=== PATIENT | male | born 1975 | race Caucasian/White ===

== ENCOUNTER 2024-06-29 01:58 | Emergency (ER) | payer BC, SELFPAY ==
--- NOTE | ~2024-06-29 | CT_ITS ---
Non-contrast Head CT History: Headache Technique: Axial non-contrast imaging of the brain was performed. Dose reduction technique was used on this scan by utilizing automated exposure control and iterative reconstruction technique. The dose -length product (DLP) was 756.67 mGy-cm. Findings: There is no evidence of intracranial hemorrhage, mass lesion, or acute infarct. Brain par enchyma appears normal. The ventricles and subarachnoid spaces are normal in size. The calvarium ap pears normal. The visualized paranasal sinuses and mastoid air cells are clear. Impression: No significant abnormality seen. Reviewed, dictated and finalized at location . TER Impression: No significant abnormality seen.
[2024-06-29 02:02] VITALS: BP 189/108; PULSE 76; RESP 22; TEMP 36.3; O2SAT 100
--- NOTE | 2024-06-29 02:50 | ED_ITS ---
HPI - General Adult General Chief complaint: Headache Stated complaint: headache and HTN Time Seen by Provider: 06/29/24 02:16 History of Present Illness HPI narrative: Patient is a 49-year-old male who presents to the emergency department this morning and complaining of a severe sudden-onset headache that woke him up around 1:00 a.m. this morning. Patient's was present at bedside with him informed me that the patient has been struggling to maintain his blood pressure for the past few months. Patient is on 2 different blood pressure medications and his primary care physician told him to double up on his medication which he has done a few weeks ago and it has not been controlling his blood pressure. states that his blood pressure has been sitting around 180-200 systolic for the past 3 months. Patient's primary care physician did prescribe him another blood pressure medication, however, patient states that due to insurance issues they have not failed this new medication yet. Patient denies any history of migraines and was present at bedside states that he has been having headaches associated with his elevated blood pressures but this 1 is the worst. Patient denies any focal weakness, numbness and tingling. Denies any vision changes. Related Data Allergies Allergy/AdvReac Type Severity Reaction Status Date / Time No Known Allergies Allergy Mild Verified 06/29/24 02:05 Review of Systems Review of Systems: All systems are reviewed and are negative unless stated otherwise in the HPI. [facility] Past Medical History Medical History (Updated 06/29/24 @ 04:47 by Chele Agee MD) Broken radius (~06/2006) Broken fibula (03/1993) High blood pressure Hemorrhoids Heart disease Chicken pox Family History Family History Father Hypertension Cerebrovascular accident Rheumatoid arthritis Diabetes mellitus Depression Mother Hypertension Irritable bowel syndrome (IBS) Depression Sibling No problems noted. Social History Social History Smoking status: Never smoker Alcohol intake: never Exam Narrative: General: Alert, awake, afebrile, in no acute distress. HEENT: PERRL, no rhinorrhea, no post nasal drip, oropharynx clear, photophobia. Neck: Trachea midline, no JVD, no lymphadenopathy. Cardiovascular: Regular rate and rhythm, no murmurs, rubs or gallops, no peripheral edema. Respiratory: Clear to auscultation bilaterally, no tachypnea, no wheezing, no rhonchi, no rubs, no respiratory distress. Abdomen: Soft, nontender, nondistended, no rebound, no guarding, no peritoneal signs. Musculoskeletal: No joint swelling or deformity, normal muscle tone. Skin: No rashes or petechia, no signs of infection. Psychiatric: Alert and oriented, normal behavior and judgment for situation. Neurological: Alert and oriented to person, place, and time. Follows all commands. 5/5 motor strength in the bilateral upper and lower extremity, sensation intact and equal in the bilateral upper and lower extremity, cranial nerves 2-12 grossly intact, speech is clear and fluent. Course Vital Signs Vital signs: Vital Signs Temperature 97.3 F L 06/29/24 02:02 Pulse Rate 76 06/29/24 02:02 Respiratory Rate 22 H 06/29/24 02:02 Blood Pressure 189/108 H 06/29/24 02:02 Pulse Oximetry 100 06/29/24 02:02 Oxygen Delivery Room Air 06/29/24 02:02 Temperature 97.3 F L 06/29/24 02:02 Pulse Rate 66 06/29/24 03:07 Respiratory Rate 16 06/29/24 03:07 Blood Pressure 165/94 H 06/29/24 03:07 Pulse Oximetry 95 06/29/24 03:07 Oxygen Delivery Room Air 06/29/24 02:02 Medical Decision Making MDM Narrative Medical decision making narrative: The patient was evaluated by myself in the emergency department. History is obtained from patient who is an independent historian and physical exam was performed. External medical records were reviewed at this time. IV was established and pertinent tests were ordered. Patient was administered 25 mg of IV Benadryl and 10 mg of IV Reglan for headache at this time. Patient states that he took 1 g of Tylenol prior to arrival. Viral swabs were obtained at this time and noted to be negative for C OVID/RSV/influenza. Imaging studies obtained included CT brain without IV contrast which was independently interpreted by me revealing no acute process, which is pending final radiology interpretation. On repeat assessment the patient, he is resting comfortably asleep. Repeat blood pressure noted to be 158/70 mmHg. At this time patient was administered 50 mg of IV Toradol. Patient states that he feels well enough to go home and is requesting discharge. Differential diagnosis considerations include subarachnoid hemorrhage, hypertensive emergency versus hypertensive urgency. Comorbidities impacting this visit include history of hypertension. I have evaluated and discussed social determinants of health with the patient that could potentially impact subsequent diagnosis and treatment plans. On repeat assessment of the patient, reevaluation revealed that the patient is doing well and is in no acute distress. Patient symptoms have improved since he arrived to our emergency department. Repeat vital signs were all reviewed and noted to be stable. Differential diagnosis and treatment plan were discussed with the patient at bedside. Patient agrees with discussion and after shared medical decision making agrees with discharge. All questions were answered to the patient's satisfaction. Patient will follow up with his PCP in 2 days. Patient was provided with strict return precautions and instructed to return to the emergency department if any new or worsening symptoms develop. The patient was discharged in stable condition. Vital Signs Vital Signs: Vital Signs Temperature 97.3 F L 06/29/24 02:02 Pulse Rate 76 06/29/24 02:02 Respiratory Rate 22 H 06/29/24 02:02 Blood Pressure 189/108 H 06/29/24 02:02 Pulse Oximetry 100 06/29/24 02:02 Oxygen Delivery Room Air 06/29/24 02:02 Temperature 97.3 F L 06/29/24 02:02 Pulse Rate 66 06/29/24 03:07 Respiratory Rate 16 06/29/24 03:07 Blood Pressure 165/94 H 06/29/24 03:07 Pulse Oximetry 95 06/29/24 03:07 Oxygen Delivery Room Air 06/29/24 02:02 Lab Data Labs: Lab Results 06/29/24 Range/Units 02:54 Influenza A (RT-PCR) Negative (Negative) Influenza B (RT-PCR) Negative (Negative) RSV (RT-PCR) Negative (Negative) SARS-CoV-2 RNA (RT-PCR) Negative (Negative) Discharge Plan Discharge Clinical Impression: Cephalalgia HTN (hypertension) Qualifiers: Hypertension type: essential hypertension Qualified Code(s): I10 - Essential (primary) hypertension Patient Disposition: Home, Self-Care Condition: Improved Instructions: Antibiotic Form, Acute Headache (DC), Hypertension (ED) Additional Instructions: Please follow-up with your family doctor within the next 2 days. I do recommend starting the new hypertension medication that your primary care physician prescribed you as soon as possible as maintaining of blood pressure in the 180- 200 systolic is dangerous and may result in serious life-threatening conditions such as stroke. Return to the emergency department if any new or worsening symptoms develop. Patient Language: Bengali Prescriptions: No Action simvastatin 10 mg tablet See Rx Instructions .ROUTE .COMPLEX Qty: 90 3RF Dose Instruction: TAKE 1 TABLET DAILY Rx Instructions: TAKE 1 TABLET DAILY amlodipine 10 mg tablet 10 mg PO DAILY Qty: 30 0RF Follow-up/Referrals: Claudia,Kirill Gonzalez MD [Primary Care Provider] - 2 Days Time of Disposition: 04:47
[2024-06-29] MEDS: METOCLOPRAMIDE HCL INJ 10 MG/2 ML VIAL IV PUSH (03:02)
[2024-06-29] MEDS: diphenhydrAMINE HCl INJ 50 MG/ML VIAL 25 MG IV PUSH (03:02)
[2024-06-29 03:07] VITALS: BP 165/94; PULSE 66; RESP 16; O2SAT 95
[2024-06-29 03:34] LABS: Influenza A QL RT-PCR Negative (Negative); Influenza B QL RT-PCR Negative (Negative); RSV RNA, RT-PCR Negative (Negative); SARS-CoV-2 RNA PCR Negative (Negative)
[2024-06-29] MEDS: KETOROLAC 15 MG/ML VIAL (*BKC) IV PUSH (04:43)
[2024-06-29 05:10] VITALS: BP 162/88; PULSE 63; RESP 13; O2SAT 99
--- OUTSIDE RECORDS SUMMARY | 2024-07-01 15:18 | XMS_ITS | Clinical Summary ---
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 Name Role Phone Kirill Taylor MD Primary Care Provider [phone] Allergies No known active allergies Medications aspirin 81 mg enteric coated tablet Take 1 tablet (81 mg total) by mouth daily 06/18/19 24 Active testosterone cypionate (DEPO-TESTOTER ONE) 100 mg/mL injection INJECT 1 ML (100 MG TOTAL) INTO THE MUSCLE INSTRUCTED EVERY 14 (FOURTEEN) DAYS 10 mL 1 03/24/20 24 Active rosuvastatin (CRESTOR) 10 mg tablet Take 1 tablet (10 mg total) by mouth daily 90 tablet 04/12/20 24 Active amlodipine-olm esartan (JOY) 10-40 mg per tablet Take 1 tablet by mouth daily 30 tablet 2 06/29/19 25 Active cloNIDine (CATAPRES) 0.1 mg tablet 1 q 12 BP greater than 180 prn 60 tablet 1 06/29/19 25 Active tirzepatide (MOUNJARO) 2.5 mg/0.5 mL pen injector Inject 0.5 mL (2.5 mg total) under the skin every 7 days 2 mL 2 05/22/20 23 025 Discontinued(Th erapy completed) amLODIPine-radha azepriL (LOTREL 5-10) 5-10 mg per capsule TAKE 1 CAPSULE BY MOUTH DAILY 90 capsule 03/15/20 24 025 Discontinued amLODIPine-radha azepriL (LOTREL 5-10) 5-10 mg per capsule TAKE 1 CAPSULE BY MOUTH EVERY DAY 90 capsule 06/10/19 25 025 Discontinued(Th erapy completed) azilsartan med-chlorthali done 40-12.5 mg tablet 1 daily 30 tablet 5 06/17/19 25 025 Discontinued(Re order) azilsartan med-chlorthali done 40-12.5 mg tablet 1 daily 90 tablet 1 06/23/19 25 025 Discontinued(Re order) azilsartan med-chlorthali done 40-12.5 mg tablet 1 daily 90 tablet 1 06/25/19 25 025 Discontinued(Re order) azilsartan med-chlorthali done 40-12.5 mg tablet 1 daily 90 tablet 1 06/28/19 25 025 Discontinued(Al ternate therapy) Active Problems Problem Noted Date Diagnosed Date Encounter for screening for malignant neoplasm o f colon 06/26/2023 Morbid (severe) obesity due to excess calories 1 07/23/2022 LIA (obstructive sleep apnea) 06/18/2022 Annual physical exam 05/16/2022 Hypertension 10/14/2012 Assessment & Plan (05/20/2018 4:13 PM TRANSITION LEAD): Blood pressure is under good control. Continue meds and work on lifestyle. Had previously elevated creatinine. Will check labs today. Follow-up 1 year. Encounters Date Type Department Care Team Description 06/29/2024 3:00 PM TRANSITION LEAD Office Visit [facility] Family Medicine at [address] [place] [phone] Kirill Taylor MD Essential hypertension (Primary Dx) 06/22/2024 Telephone [facility] at [address] [place] [phone] Kirill Taylor MD Medication Request 06/17/2024 11:15 AM TRANSITION LEAD Office Visit [facility] Medicine at [address] [address] Kirill Taylor MD Annual physical exam (Primary Dx); Hypogonadism in male; Mixed hyperlipidemia 06/12/2024 12:05 PM TRANSITION LEAD Lab [facility] [address] [place] [address] Annual physical exam; Hypogonadism in male; Prostate cancer screening; Mixed hyperlipidemia 04/26/2024 Telephone [facility] Family Medicine at [place] [address] [facility] [address] [place] [address] Kirill Taylor MD Additional Services Or Orders 03/31/2024 8:30 AM CDT Lab [facility] Outpatient Lab at [address] [address] Hypertension (Primary Dx) 03/31/2024 8:25 AM CDT - 03/31/2024 11:59 PM CDT Hospital Encounter [address] [address] Hypogonadism in male Discharge Disposition: Discharge to home or self care from Last 3 Months Immunizations Name Administration Dates Next Due Influenza, Quadrivalent, Spl it, Preservative Free, Intramuscular 05/22/2023 Influenza, Unspecified 06/17/2024(Deferr ed: Patient decision),03/22/2021,03/09/2020 Surgical History Surgery Date Site/Laterality Comments ANKLE FRACTURE SURGERY Right Medical History Medical History Date Comments Sleep apnea Motion sickness Hypertension Hyperlipidemia Family History Medical History Relation Name Comments Hypertension Father Family history of hypertension - (Added by TW Conv) Rheum arthritis Father Family histo ry of rheumatoid arthritis - (Added by TW Conv) Stroke Father Family history of stroke - (Added by TW Conv) Hypertension Mother Family history of hypertension - (Added by TW Conv) Relation Name Status Comments Father Mother Social History Tobacco Use Types Packs/Day Years Used Date Smoking Tobacco: Never Smokeless Tobacco: Never Tobacco Cessation:Counseling Given: Not Answered AUDIT-C Answer Date Recorded Q1: How often do you have a drink containing alc ohol? Monthly or less 06/17/2024 Q2: How many drinks containi ng alcohol do you have on a typical day when you are drinking? 1 or 2 06/17/2024 Q3: How often do you have si x or more drinks on one occasion? Less than monthly 06/17/2024 PHQ-2 Answer Date Recorded PHQ-2 Total Score (If total score is 3 or more points, staff should administer the PHQ-9) 0 06/17/2024 Personal Safety Answer Date Recorded Have you ever been in or are you currently in a harmful physical or emotional relationship or is someone making you feel afraid or unsafe? Denies 07/21/2023 Sex and Gender Information Value Date Recorded Sex Assigned at Not on file Legal Sex Male 7:40 AM TRANSITION LEAD Gender Identity Not on file Sexual Orientation Not on file Obstetrics History Last Filed Vital Signs Vital Sign Reading Time Taken Comments Blood Pressure 198/100 06/29/2024 2:59 PM TRANSITION LEAD Pulse 90 06/29/2024 2:59 PM TRANSITION LEAD Temperature 36.9 ??C (98.5 ??F) 06/29/2024 2:59 PM CS T Respiratory Rate 16 06/17/2024 11:5 9 AM TRANSITION LEAD Oxygen Saturation 97% 06/29/2024 2:59 PM TRANSITION LEAD Inhaled Oxygen Concentration - - Weight 121.2 kg (267 lb 3.2 oz) 06/29/2024 2:59 PM TRANSITION LEAD Height 180.3 cm (5' 11 ) 06/29/2024 2:59 PM TRANSITION LEAD Body Mass Index 37.27 06/29/2024 2:59 PM TRANSITION LEAD Plan of Treatment Health Maintenance Due Date Last Done Comments Hepatitis C Screening 1975 DTaP/Tdap/Td Vaccine (1 - Tdap) 02/09/1984 Hepatitis B Screening 1991 Zoster Vaccine (1 of 2) 2023 Covid-19 Vaccine ( - season) 2024 08/18/2020, 07/21/2020 Regular Well Visit/Exam 18-64 05/22/2024 05/22/2023, 05/16/2022, 04/18/2021 Influenza Vaccine (#1) 2024 , 03/22/2021, 03/09/2020 Postponed from 2024 (Patient declined, but will receive in the future) Depression Screening 06/17/2025 06/17/2024, 06/17/2024, 05/22/2023, Additional history exists Prostate Cancer Screening-PSA 06/12/2026 06/12/2024, 01/01/2023, 05/22/2022 Colon Cancer Screening-Colonoscopy 07/21/2033 07/21/2023 Pneumococcal vaccine <65 Aged Out No longer eligible based on patient's age to complete this topic Procedures Procedure Name Priority Date/Time Associated Diagnosis Comments EGFR Routine 06/12/2024 12:47 PM TRANSITION LEAD Annual physical exam DIFFERENTIAL AUTO Routine 06/12/2024 12: 47 PM TRANSITION LEAD Annual physical exam CBC WITH AUTO DIFFERENTIAL Routine 06/12/2024 12:47 PM TRANSITION LEAD Annual physical exam COMPREHENSIVE METABOLIC PANEL Routine 06/12/2024 12:47 PM TRANSITION LEAD Annual physical exam LIPID PANEL Routine 06/12/2024 12:47 PM TRANSITION LEAD Annual physical exam Mixed hyperlipidemia PSA SCREEN Routine 06/12/2024 12:47 PM TRANSITION LEAD Annual physical exam Prostate cancer screening TOTAL TESTOSTERONE Routine 06/12/2024 12 :47 PM TRANSITION LEAD Hypogonadism in male HEMOGLOBIN A1C Routine 06/12/2024 12:47 PM TRANSITION LEAD Annual physical exam TOTAL TESTOSTERONE Routine 03/31/2024 8: 25 AM CDT Hypogonadism in male COLONOSCOPY 07/21/2023 1:06 PM TRANSITION LEAD from Last 3 Months or Most Recently Relevant to Health Maintenance Results * eGFR (06/12/2024 12:47 PM TRANSITION LEAD) eGFR 73 >=60 mL/min/1. 73 m2 Comment: Interpretive Data Reference Interval Normal ?>/= 90 mL/min/1.73m2 Mildly decreased* ? 60 - 89 mL/min/1.73m2 Mildly to moderately decreased ?45 - 59 mL/min/1.73m2 Moderately to severely decreased ??30 - 44 mL/min/1.73m2 Severely decreased ?15 - 29 mL/min/1.73m2 Kidney Failure ?< 15 ??mL/min/1.73m2 *Relative to young adult level Estimated glomerular filtration rate is determined by the 2020 CKD-EPI equation recommended by the National Kidney Foundation (A Unifying Approach to GFR Estimation: Recommendations of the NKF-ASK Task Force on Reassessing the Inclusion of Race in Diagnosing Kidney Disease, JASN 2020). The CKD-EPI equation should not be used for patients with unstable renal function and has not been validated in children and those over 70. Current interpretive data was last reviewed 2021. Testing performed by: [address] [address] Blood 06/12/2024 12:4 7 PM TRANSITION LEAD 06/12/2024 12:54 PM TRANSITION LEAD us Kirill Taylor MD LAB BLOOD ORDERABLES Final Re sult [facility] [address] [facility] [place] [address] * (ABNORMAL) Differential, auto (06/12/2024 12:47 PM TRANSITION LEAD) Neutrophil abs 7.4(H) 1.5 - 6.5 K/cumm Comment:Testing performed by : [address] [address] Imm gran abs 0.1 0.0 - 0.1 K/cumm [facility] Comment:Testing performed by : [address] [address] Lymphocyte abs 1.8 0.8 - 3.3 K/cumm [facility] Comment:Testing performed by : [address] [address] Monocyte abs 0.9(H) 0.2 - 0.8 K/cumm [facility] Comment:Testing performed by : [address] [address] Eosinophil abs 0.1 0.0 - 0.5 K/cumm [facility] Comment:Testing performed by : [address] [address] Basophil abs 0.1 0.0 - 0.1 K/cumm [facility] Comment:Testing performed by : [address] [address] Neutrophil pct 71.0 % [facility] Comment: Interpretive Data Percent cell count reference ranges are not reported, since discordance with absolute values may lead to misinterpretation of CBC data. Current Interpretive Data was last revised on 2017. Testing performed by: [address] [address] Imm gran pct 1.2 % [facility] Comment: Interpretive Data Percent cell count reference ranges are not reported, since discordance with absolute values may lead to misinterpretation of CBC data. Current Interpretive Data was last revised on 2017. Testing performed by: [address] [address] Lymphocyte pct 17.2 % [facility] Comment: Interpretive Data Percent cell count reference ranges are not reported, since discordance with absolute values may lead to misinterpretation of CBC data. Current Interpretive Data was last revised on 2017. Testing performed by: [address] [address] Monocyte pct 9.0 % [facility] Comment: Interpretive Data Percent cell count reference ranges are not reported, since discordance with absolute values may lead to misinterpretation of CBC data. Current Interpretive Data was last revised on 2017. Testing performed by: [address] [address] Eosinophil pct 1.1 % [facility] Comment: Interpretive Data Percent cell count reference ranges are not reported, since discordance with absolute values may lead to misinterpretation of CBC data. Current Interpretive Data was last revised on 2017. Testing performed by: [address] [address] Basophil pct 0.5 % [facility] Comment: Interpretive Data Percent cell count reference ranges are not reported, since discordance with absolute values may lead to misinterpretation of CBC data. Current Interpretive Data was last revised on 2017. Testing performed by: [facility], [address] [place] [address]., [address] Blood 06/12/2024 12:4 7 PM TRANSITION LEAD 06/12/2024 12:53 PM TRANSITION LEAD us Kirill Taylor MD LAB BLOOD ORDERABLES Final Re sult [facility] [address] [facility] [place] [address] * PSA screen (06/12/2024 12:47 PM TRANSITION LEAD) PSA-Total 2.88 <=3.90 ng/mL Comment: Interpretive Data ?AGE ? SEX ?REFERENCE INTERVAL 0 minutes-150 years ?Female ?None 0 minutes-49 years ? Male ?None ? 50-59 years ? Male ?0-3.90 ? 60-69 years ? Male ?0-5.40 ? 70-79 years ? Male ?0-6.20 ? 80-150 years ?Male ?0-6.20 The EQUIP Advantage PSA Total assay procedure was used. Results from different manufacturers or methods may not be comparable. Serial testing should be performed using the same method. Current interpretive data last revised 21. Testing performed by: [facility], [address] [place] [address]., [address] Blood 06/12/2024 12:4 7 PM TRANSITION LEAD 06/12/2024 12:54 PM TRANSITION LEAD us Kirill Taylor MD LAB BLOOD ORDERABLES Final Re sult [facility] [address] [facility] [place] [address] * (ABNORMAL) CBC with auto differential (06/12/2024 12:47 PM TRANSITION LEAD) WBC 10.4(H) 3.8 - 9.9 K/cumm Comment:Testing performed by : [address] [address] Hgb 17.0 13.0 - 17.5 g/dL [facility] Comment:Testing performed by : [address] [address] Hct 50.0 38.9 - 50.3 % [facility] Comment:Testing performed by : [address] [address] Plt 227 150 - 400 K/cumm [facility] Comment:Testing performed by : [address] [address] MPV 11.2 9.1 - 12.3 fL [facility] Comment:Testing performed by : [address] [address] RBC 5.65 4.30 - 5.80 M/cumm [facility] Comment:Testing performed by : [address] [address] MCV 88.5 81.3 - 96.4 fL [facility] Comment:Testing performed by : [address] [address] MCH 30.1 27.1 - 33.3 pg [facility] Comment:Testing performed by : [address] [address] MCHC 34.0 32.3 - 35.7 g/dL [facility] Comment:Testing performed by : [address] [address] RDW CV 13.8 11.1 - 14.9 % [facility] Comment:Testing performed by : [address] [address] RDW SD 44.0 35.7 - 48.1 fL [facility] Comment:Testing performed by : [address] [address] NRBC abs 0.00 0.00 - 0.01 K/cumm [facility] Comment:Testing performed by : [address] [address] Blood 06/12/2024 12:4 7 PM TRANSITION LEAD 06/12/2024 12:53 PM TRANSITION LEAD Kirill Taylor MD LAB BLOOD ORDERABLES Final Re sult Performing Organization Address [facility] de Phone Number [address] [address] * (ABNORMAL) Total testosterone (06/12/2024 12:47 PM TRANSITION LEAD) Testosterone 836.00(H) 193.00 - 740.00 ng/dL Blood 06/12/2024 12:4 7 PM TRANSITION LEAD 06/12/2024 2:51 PM TRANSITION LEAD Kirill Taylor MD LAB BLOOD ORDERABLES Final Re sult Performing Organization Address [facility] de Phone Number [address] [address] * Hemoglobin A1c (06/12/2024 12:47 PM TRANSITION LEAD) Hgb A1C 5.4 4.0 - 5.6 % Comment:Testing performed by : [address] [address] Estimated Average Glucose 108 mg/dL [facility] Comment: The ADA recommends reporting an estimated Average Glucose (eAG) with all Hemoglobin A1c results using the equation derived from a study of 507 normal and diabetic adults. ??Minority populations were underrepresented and children were not included. ?? (Diabetes Care 31:1688-0037, 2008). ??The eAG is not equivalent to a fasting glucose. Testing performed by: [address] [address] Blood 06/12/2024 12:4 7 PM TRANSITION LEAD 06/12/2024 12:53 PM TRANSITION LEAD us Kirill Taylor MD LAB BLOOD ORDERABLES Final Re sult [facility] [address] [facility] Department [place] [address] * (ABNORMAL) Lipid panel (06/12/2024 12:47 PM TRANSITION LEAD) Cholesterol 164 30 - 199 mg/dL Comment: Interpretive Data Ages < or = 19 years ??Acceptable: ? <170 mg/dL ??Borderline high: ??170-199 mg/dL ??High: ? >or= 200 mg/dL Ages > or = 20 years ??Desirable: ?<200 mg/dL ??Borderline high: ??200-239 mg/dL ??High: ? >or= 240 mg/dL Literature References: 1. Expert Panel on Integrated Guidelines for Cardiovascular Health and Risk Reduction in Children and Adolescents. Pediatrics 2011;128:S213 2. NCEP Expert Panel. Circulation 2004;110:227 Current Interpretive Data was last revised on 2018. Testing performed by: [facility], [address] [place] [address]., [address] Triglycerides 134 <=149 mg/dL [facility] Comment: Interpretive Data Ages < or = 9 years ??Acceptable: ? <75 mg/dL ??Borderline high: ??75-99 mg/dL ??High: ? >or= 100 mg/dL Ages 10 to 20 years ??Acceptable: ? <90 mg/dL ??Borderline high: ??90-129 mg/dL ??High: ? >or= 130 mg/dL Ages > or = 20 years ??Desirable: ?<150 mg/dL ??Borderline high: ??150-199 mg/dL ??High: ? 200-499 mg/dL ?Very high: ?? >or= 499 mg/dL Literature References: 1. Expert Panel on Integrated Guidelines for Cardiovascular Health and Risk Reduction in Children and Adolescents. Pediatrics 2011;128:S213 2. NCEP Expert Panel. Circulation 2004;110:227 Current Interpretive Data was last revised on 2018. Testing performed by: [address] [address] HDL 36(L) >=40 mg/dL [facility] Comment: Interpretive Data Ages < or = 19 years ??Acceptable: ? >45 mg/dL ??Borderline low: ?? 40-45 mg/dL ??Low: ? <40 mg/dL Ages > or = 20 years ??Desirable: ?>or= 60 mg/dL ??Low: ? <40 mg/dL Literature References: 1. Expert Panel on Integrated Guidelines for Cardiovascular Health and Risk Reduction in Children and Adolescents. Pediatrics 2011;128:S213 2. NCEP Expert Panel. Circulation 2004;110:227 Current Interpretive Data was last revised on 2018. Testing performed by: [address] [address] LDL, calculated 104 <=129 mg/dL [facility] Comment: Interpretive Data Ages < or = 19 years ??Acceptable: ? <110 mg/dL ??Borderline high: ??110-129 mg/dL ??High: ?>or= 130 mg/dL Ages > or = 20 years ??Optimal: ? <100 mg/dL ??Near optimal: ?100-129 mg/dL ??Borderline high: ?? 130-159 mg/dL ??High: ?>160 mg/dL Calculated using the Martell LDL-C estimating equation. This equation was implemented on 2024. Prior to this date LDL-C was estimated using the Friedewald equation. Literature References: 1. Expert Panel on Integrated Guidelines for Cardiovascular Health and Risk Reduction in Children and Adolescents. Pediatrics 2011;128:S213 2. NCEP Expert Panel. Circulation 2004;110:227 3. Jasbir M et al. PAMLEA Cardiol. 2020 October 07;5(5):540-548. doi: 10.1001/jamacardio.2020.0013 Current Interpretive Data was last revised on 2024. Testing performed by: [address] [address] Non-HDL Cholesterol 128 mg/dL [facility] Comment: Interpretive Data Ages < or = 19 years ??Acceptable: ?<120 mg/dL ??Borderline high: ??120-144 mg/dL ??High: ?>145 mg/dL Ages > or = 20 years ??When triglycerides are >200 mg/dL, Non-HDL cholesterol is a secondary target of ? therapy with treatment goals that are 30 mg/dL greater than the LDL cholesterol target. ? Literature References: 1. Expert Panel on Integrated Guidelines for Cardiovascular Health and Risk Reduction in Children and Adolescents. Pediatrics 2011;128:S213 2. NCEP Expert Panel. Circulation 2004;110:227 Current Interpretive Data was last revised on 2018. Testing performed by: [address] [address] Chol/HDL ratio 5 [facility] Comment:Testing performed by : [address] [address] Blood 06/12/2024 12:4 7 PM TRANSITION LEAD 06/12/2024 12:54 PM TRANSITION LEAD us Kirill Taylor MD LAB BLOOD ORDERABLES Final Re sult [facility] [address] [facility] [place] [address] * Comprehensive metabolic panel (06/12/2024 12:47 PM TRANSITION LEAD) Sodium 142 135 - 145 mmol/L Comment:Testing performed by : [address] [address] Potassium, pl 4.5 3.3 - 4.9 mmol/L [facility] Comment:Testing performed by : [address] [address] Chloride 107 97 - 110 mmol/L [facility] Comment:Testing performed by : [address], [place]., [address] CO2 23 22 - 32 mmol/L [facility] Comment:Testing performed by : [address] [address] Anion gap 12 2 - 15 mmol/L [facility] Comment:Testing performed by : [address] [address] BUN 21 6 - 25 mg/dL [facility] Comment:Testing performed by : [address], [place]., [address] Creatinine 1.20 0.80 - 1.30 mg/dL [facility] Comment:Testing performed by : [address] [address] Glucose 82 70 - 199 mg/dL [facility] Comment: Interpretive Data Fasting glucose >/= 126 mg/dl is diagnostic for diabetes. ?? Fasting is defined as no caloric intake for at least 8 hours. Fasting glucose between 100 mg/dl to 125 mg/dl is diagnostic of prediabetes. In a patient with classic symptoms of hyperglycemia or hyperglycemic crisis, a random glucose >/= 200 mg/dl is diagnostic for diabetes. In the absence of unequivocal hyperglycemia, results should be confirmed by repeat testing. The classification and Diagnosis of Diabetes Diabetes Care 202; 46: S19-S40. Current interpretive data was last revised 2022. Testing performed by: [address] [address] Calcium 9.4 8.5 - 10.3 mg/dL [facility] Comment:Testing performed by : [address] [address] Bilirubin, total 0.7 0.1 - 1.2 mg/dL [facility] Comment:Testing performed by : [address] [address] Protein, pl 7.3 6.5 - 8.5 g/dL [facility] Comment:Testing performed by : [address] [address] Albumin 4.6 3.5 - 5.0 g/dL [facility] Comment:Testing performed by : [address] [address] Alk phos 51 40 - 130 Units/L [facility] Comment:Testing performed by : [address] [address] ALT 38 7 - 55 Units/L [facility] Comment:Testing performed by : [address] [address] AST 31 10 - 50 Units/L [facility] Comment:Testing performed by : [address], [address] Blood 06/12/2024 12:4 7 PM TRANSITION LEAD 06/12/2024 12:54 PM TRANSITION LEAD us Kirill Taylor MD LAB BLOOD ORDERABLES Final Re sult [facility] [address] [facility] [place] [address] * (ABNORMAL) Total testosterone (03/31/2024 8:25 AM CDT) Testosterone 1,249(H) 193 - 740 ng/dL Blood 03/31/2024 8:25 AM CDT 03/31/2024 6:04 PM CDT Kirill Taylor MD LAB BLOOD ORDERABLES Final Re sult [facility] [address] Department [place] [address] * COLONOSCOPY (07/21/2023 1:06 PM TRANSITION LEAD) Anatomical Region Laterality Modality Other Narrative Procedure Note Juaquin Wren MD - 07/21/2023 1:06 PM CST [facility] Patient Name: Vijaya Boyd Procedure Date: 07/21/2023 1:06 PM Date of : 1975 Admit Type: Outpatient Age: 48 Gender: Male Note Status: Finalized Attending MD: Juaquin Wren M.D. Procedure Date: 07/21/2023 Procedure: Colonoscopy Indications: Colon cancer screening in patient at increasedrisk: Family history of colorectal cancer in multiple 2nd degree relatives Providers: Juaquin Wren M.D., Foster Li CRNA (Anesthesia Staff), Brigitte Mclean RN, Christine, Cafeteria Table Attendant Referring MD: Kirill Taylor M.D. Medicines: Monitored Anesthesia Care Complications: No immediate complications. Estimated Blood Loss: Estimated blood loss: none. Procedure: Pre-Anesthesia Assessment: - Airway Examination: normal oropharyngeal airwayand neck mobility. - Respiratory Examination: clear to auscultation. - ASA Grade Assessment: II - A patient with mild systemic disease. - After reviewing the risks and benefits, thepatient was deemed in satisfactory condition to undergo the procedure. - The risks and benefits of the procedure and the sedation options and risks were discussed with the patient. All questions were answered and informed consent was obtained. After I obtained informed consent, the scope was passed under direct vision. Throughout theprocedure, the patient's blood pressure, pulse, and oxygen saturations were monitored continuously. The scopewas passed under direct vision. The Colonoscope was introduced through the anus and advanced to the the cecum, identified by the appendiceal orifice, ileocecal valve and palpation. The colonoscopy was performed with ease. The patient tolerated the procedure well. The quality of the bowelpreparation was good. The quality of the bowel preparation was evaluated using the BBPS ([place] Bowel Preparation Scale) with scores of: Right Colon = 2 (minoramount of residual staining, small fragments of stooland/or opaque liquid, but mucosa seen well), TransverseColon = 2 (minor amount of residual staining, small fragments of stool and/or opaque liquid, but mucosa seen well) and Left Colon = 2 (minor amount of residual staining, small fragments of stool and/or opaque liquid, but mucosa seen well). The totalBBPS score equals 6. The quality of the bowelpreparation was good. The bowel preparation used was Clenpiqvia split dose instruction. Bowel prep was administered using a split dose. Findings: The perianal and digital rectal examinations were normal. Multiple medium-mouthed diverticula were found in the sigmoidcolon. An 8 mm polyp was found in the sigmoid colon. The polyp was sessile.The polyp was removed with a cold snare. Resection and retrieval were complete. Estimated blood loss: none. A 5 mm polyp was found in the sigmoid colon. The polyp was sessile.The polyp was removed with a cold biopsy forceps. Resection and retrieval were complete. Estimated blood loss: none. The retroflexed view of the distal rectum and anal verge was normaland showed no anal or rectal abnormalities. A 13 mm polyp was found in the hepatic flexure. The polyp was multi-lobulated. Preparations were made for mucosal resection.Thermal marking with the tip of a snare was done to denilson the borders of the lesion. Demarcation of the lesion was performed to clearly identify boundaries of the lesion. Everlift was injected to raise the lesion. Snare mucosal resection was performed. Resection and retrieval were complete. Impression: - Diverticulosis in the sigmoid colon. - One 13 mm polyp in the ascending colon, removedwith mucosal resection. Resected and retrieved. - One 8 mm polyp in the sigmoid colon, removed witha cold snare. Resected and retrieved. - One 5 mm polyp in the sigmoid colon, removed witha cold biopsy forceps. Resected and retrieved. - The distal rectum and anal verge are normal on retroflexion view. - Mucosal resection was performed. Resection and retrieval were complete. Recommendation: - Discharge patient to home (ambulatory). - Await pathology results. - Repeat colonoscopy in 3 years for surveillance. - No ibuprofen, naproxen, or other non-steroidal anti-inflammatory drugs for 2 weeks after polyp removal. Procedure Code(s): --- Professional --- 49587, Colonoscopy, flexible; with endoscopicmucosal resection 57487, 59, Colonoscopy, flexible; with removal of tumor(s), polyp(s), or other lesion(s) by snare technique 00396, 59, Colonoscopy, flexible; with biopsy,single or multiple Diagnosis Code(s): --- Professional --- Z80.0, Family history of malignant neoplasm of digestive organs D12.2, Benign neoplasm of ascending colon D12.5, Benign neoplasm of sigmoid colon K57.30, Diverticulosis of large intestine without perforation or abscess without bleeding CPT copyright 2020 [employer]. All rights reserved. The codes documented in this report are preliminary and upon program analyst reviewmay be revised to meet current compliance requirements. Electronically signed by Juaquin Wren MD Juaquin Wren M.D. 07/21/2023 1:35:57 PM Number of Addenda: 0 Note Initiated On: 07/21/2023 1:06 PM Juaquin Wren MD ENDOSCOPY PROCEDURES Final Resul t from Last 3 Months or Most Recently Relevant to Health Maintenance Insurance [facility] ACCESS CHOICE txtr ACCESS CHOICE [employer] ACCESS CHOICE Care Teams Stock Cutter Relationship Specialty Start Date End Date Kirill Taylor MD PCP - General Family Medicine 04/18/21
--- OUTSIDE RECORDS SUMMARY | 2024-07-01 15:18 | XMS_ITS | Clinical Summary ---
Author Organization [facility] Address [address] [place] [address]. 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 Gender Identity Not on file Sexual Orientation Not on file Plan of Treatment Health Maintenance Due Date Last Done Comments Colorectal Cancer Screening Colonoscopy (10 Years) 1973 Annual Physical 02/09/1976 Hepatitis C 1991 DTaP, Tdap and Td Vaccines ( 1 - Tdap) 02/09/1992 Hepatitis B Vaccines (1 of 3 - 19+ 3-dose series) 02/09/1992 Zoster Vaccines (1 of 2) 2023 COVID-19 Vaccine (1 - 2023-2 5 season) 2024 Influenza Adult (#1) 2024 03/22/2021, 03/09/2020 Meningococcal Vaccine Aged Out No albaro gerald eligible based on patient's age to complete this topic Pneumococcal Vaccine: Pediatrics (0 to 5 Years) and At-Risk Patients (6 to 64 Years) Aged Out No longer eligible b ased on patient's age to complete this topic RSV Immunizations Under 20 Months Aged Out No longer eligible b ased on patient's age to complete this topic Insurance [facility] Care Teams Remote Control Mirror Installer Relationship Specialty Start Date End Date Kirill Taylor MD PCP - General FAMILY PRACTICE 04/23/21
--- OUTSIDE RECORDS SUMMARY | 2024-07-01 15:18 | XMS_ITS | Referral Summary ---
Author Organization [facility] Address [facility] [place] [address] Care Team Providers Care Respiratory Therapy Director Name Role Phone Kirill Taylor MD Primary Care Provider [phone] Encounters Date Type Department Care Team Description 06/29/2024 3:00 PM COMMUNITY HEALTH NAVIGATOR Office Visit [facility] Medical [facility] Family Medicine at [address] [place] [phone] Kirill Taylor MD Essential hypertension (Primary Dx) 06/22/2024 Telephone [facility] Family Medicine at [address] [place] [phone] Kirill Taylor MD Medication Request 06/17/2024 11:15 AM COMMUNITY HEALTH NAVIGATOR Office Visit [facility] Family Medicine at [address] [place] [phone] Kirill Taylor MD Annual physical exam (Primary Dx); Hypogonadism in male; Mixed hyperlipidemia 06/12/2024 12:05 PM COMMUNITY HEALTH NAVIGATOR Lab [facility] Lab [address] [place] [address] Annual physical exam; Hypogonadism in male; Prostate cancer screening; Mixed hyperlipidemia 04/26/2024 Telephone [facility] Family Medicine at [address] [place] [phone] Kirill Taylor MD Additional Services Or Orders 03/31/2024 8:25 AM CDT - 03/31/2024 11:59 PM CDT Hospital Encounter [facility] [address] [place] [address] Hypogonadism in male Discharge Disposition: Discharge to home or self care 03/31/2024 8:30 AM CDT Lab [facility] Outpatient Lab at [address] [phone] Hypertension (Primary Dx) from Last 3 Months Allergies No known active allergies Medications aspirin [...] 10/14/2012 Assessment & Plan (05/20/2018 4:13 PM COMMUNITY HEALTH NAVIGATOR): Blood pressure is under good control. Continue meds and work on lifestyle. Had previously elevated creatinine. Will check labs today. Follow-up 1 year. 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 Gender Identity Not on file Sexual Orientation Not on file Last Filed Vital Signs Vital Sign Reading Time Taken Comments Blood Pressure 198/100 06/29/2024 2:59 PM COMMUNITY HEALTH NAVIGATOR Pulse 90 06/29/2024 2:59 PM COMMUNITY HEALTH NAVIGATOR Temperature 36.9 ??C (98.5 ??F) 06/29/2024 2:59 PM CS T Respiratory Rate 16 06/17/2024 11:5 9 AM COMMUNITY HEALTH NAVIGATOR Oxygen Saturation 97% 06/29/2024 2:59 PM COMMUNITY HEALTH NAVIGATOR Inhaled Oxygen Concentration - - Weight 121.2 kg (267 lb 3.2 oz) 06/29/2024 2:59 PM COMMUNITY HEALTH NAVIGATOR Height 180.3 cm (5' 11 ) 06/29/2024 2:59 PM COMMUNITY HEALTH NAVIGATOR Body Mass Index 37.27 06/29/2024 2:59 PM COMMUNITY HEALTH NAVIGATOR Plan of Treatment Not on file Procedures Procedure Name Priority Date/Time Associated Diagnosis Comments EGFR Routine 06/12/2024 12:47 PM COMMUNITY HEALTH NAVIGATOR Annual physical exam DIFFERENTIAL AUTO Routine 06/12/2024 12: 47 PM COMMUNITY HEALTH NAVIGATOR Annual physical exam CBC WITH AUTO DIFFERENTIAL Routine 06/12/2024 12:47 PM COMMUNITY HEALTH NAVIGATOR Annual physical exam COMPREHENSIVE METABOLIC PANEL Routine 06/12/2024 12:47 PM COMMUNITY HEALTH NAVIGATOR Annual physical exam LIPID PANEL Routine 06/12/2024 12:47 PM COMMUNITY HEALTH NAVIGATOR Annual physical exam Mixed hyperlipidemia PSA SCREEN Routine 06/12/2024 12:47 PM COMMUNITY HEALTH NAVIGATOR Annual physical exam Prostate cancer screening TOTAL TESTOSTERONE Routine 06/12/2024 12 :47 PM COMMUNITY HEALTH NAVIGATOR Hypogonadism in male HEMOGLOBIN A1C Routine 06/12/2024 12:47 PM COMMUNITY HEALTH NAVIGATOR Annual physical exam TOTAL TESTOSTERONE Routine 03/31/2024 8: 25 AM CDT Hypogonadism in male COLONOSCOPY 07/21/2023 1:06 PM COMMUNITY HEALTH NAVIGATOR from Last 3 Months or Most Recently Relevant to Health Maintenance Results * eGFR (06/12/2024 12:47 PM COMMUNITY HEALTH NAVIGATOR) eGFR 73 >=60 mL/min/1. 73 m2 Comment: [...] was last reviewed 2021. Testing performed by: [facility], [address] [place] [address]., [address] Blood 06/12/2024 12:4 7 PM COMMUNITY HEALTH NAVIGATOR 06/12/2024 12:54 PM COMMUNITY HEALTH NAVIGATOR us Kirill Taylor MD LAB BLOOD ORDERABLES Final Re sult [facility] [address] [facility] [place] [address] * (ABNORMAL) Differential, auto (06/12/2024 12:47 PM COMMUNITY HEALTH NAVIGATOR) Pathologist [facility] Neutrophil abs 7.4(H) 1.5 - 6.5 K/cumm Comment:Testing performed by : [address] [address] Imm gran abs 0.1 0.0 - 0.1 K/cumm [facility] Comment:Testing performed by : [address] [address] Lymphocyte abs 1.8 0.8 - 3.3 K/cumm [facility] Comment:Testing performed by : [address], [place]., [address] Monocyte abs 0.9(H) 0.2 - 0.8 K/cumm [facility] Comment:Testing performed by : [address], [place]., [address] Eosinophil abs 0.1 0.0 - 0.5 K/cumm [facility] Comment:Testing performed by : [address] [address] Basophil abs 0.1 0.0 - 0.1 K/cumm [facility] Comment:Testing performed by : [address] [address] Neutrophil pct 71.0 % [facility] Comment: Interpretive Data Percent cell count reference ranges are not reported, since discordance with absolute values may lead to misinterpretation of CBC data. Current Interpretive Data was last revised on 2017. Testing performed by: [address] [address] Imm gran pct 1.2 % [facility] Comment: Interpretive Data Percent cell count reference ranges are not reported, since discordance with absolute values may lead to misinterpretation of CBC data. Current Interpretive Data was last revised on 2017. Testing performed by: [address] [address] Lymphocyte pct 17.2 % [facility] Comment: Interpretive Data Percent cell count reference ranges are not reported, since discordance with absolute values may lead to misinterpretation of CBC data. Current Interpretive Data was last revised on 2017. Testing performed by: [address] [address] Monocyte pct 9.0 % [facility] Comment: Interpretive Data Percent cell count reference ranges are not reported, since discordance with absolute values may lead to misinterpretation of CBC data. Current Interpretive Data was last revised on 2017. Testing performed by: [facility], [address] [place] [address]., [address] Eosinophil pct 1.1 % [facility] Comment: Interpretive Data Percent cell count reference ranges are not reported, since discordance with absolute values may lead to misinterpretation of CBC data. Current Interpretive Data was last revised on 2017. Testing performed by: [address] [address] Basophil pct 0.5 % [facility] Comment: Interpretive Data Percent cell count reference ranges are not reported, since discordance with absolute values may lead to misinterpretation of CBC data. Current Interpretive Data was last revised on 2017. Testing performed by: [address] [address] Blood 06/12/2024 12:4 7 PM COMMUNITY HEALTH NAVIGATOR 06/12/2024 12:53 PM COMMUNITY HEALTH NAVIGATOR Kirill Taylor MD LAB BLOOD ORDERABLES Final Re sult [facility] [address] [facility] [place] [address] * PSA screen (06/12/2024 12:47 PM COMMUNITY HEALTH NAVIGATOR) PSA-Total 2.88 <=3.90 ng/mL Comment: Interpretive Data ?AGE ? SEX ?REFERENCE INTERVAL 0 minutes-150 years ?Female ?None 0 minutes-49 years ? Male ?None ? 50-59 years ? Male ?0-3.90 ? 60-69 years ? Male ?0-5.40 ? 70-79 years ? Male ?0-6.20 ? 80-150 years ?Male ?0-6.20 The [place] PSA Total assay procedure was used. Results from different manufacturers or methods may not be comparable. Serial testing should be performed using the same method. Current interpretive data last revised 21. Testing performed by: [address] [address] Blood 06/12/2024 12:4 7 PM COMMUNITY HEALTH NAVIGATOR 06/12/2024 12:54 PM COMMUNITY HEALTH NAVIGATOR us Kirill Taylor MD LAB BLOOD ORDERABLES Final Re sult [facility] [address] [facility] Department [place] [address] * (ABNORMAL) CBC with auto differential (06/12/2024 12:47 PM COMMUNITY HEALTH NAVIGATOR) WBC 10.4(H) 3.8 - 9.9 K/cumm Comment:Testing performed by : [address] [address] Hgb 17.0 13.0 - 17.5 g/dL [facility] Comment:Testing performed by : [address] [address] Hct 50.0 38.9 - 50.3 % [facility] Comment:Testing performed by : [address] [address] Plt 227 150 - 400 K/cumm [facility] Comment:Testing performed by : [address] [address] MPV 11.2 9.1 - 12.3 fL [facility] Comment:Testing performed by : [address] [address] RBC 5.65 4.30 - 5.80 M/cumm [facility] Comment:Testing performed by : [address] [address] MCV 88.5 81.3 - 96.4 fL [facility] Comment:Testing performed by : [address] [address] MCH 30.1 27.1 - 33.3 pg [facility] Comment:Testing performed by : [address] [address] MCHC 34.0 32.3 - 35.7 g/dL [facility] Comment:Testing performed by : [facility], [address] [place] [address]., [address] RDW CV 13.8 11.1 - 14.9 % [facility] Comment:Testing performed by : [address], [address] RDW SD 44.0 35.7 - 48.1 fL [facility] Comment:Testing performed by : [address] [address] NRBC abs 0.00 0.00 - 0.01 K/cumm [facility] Comment:Testing performed by : [address], [address] Blood 06/12/2024 12:4 7 PM COMMUNITY HEALTH NAVIGATOR 06/12/2024 12:53 PM COMMUNITY HEALTH NAVIGATOR us Kirill Taylor MD LAB BLOOD ORDERABLES Final Re sult Performing Organization Address [facility] Co de Phone Number [address] [place] [employer] [place] [address] * (ABNORMAL) Total testosterone (06/12/2024 12:47 PM COMMUNITY HEALTH NAVIGATOR) Testosterone 836.00(H) 193.00 - 740.00 ng/dL Blood 06/12/2024 12:4 7 PM COMMUNITY HEALTH NAVIGATOR 06/12/2024 2:51 PM COMMUNITY HEALTH NAVIGATOR us Kirill Taylor MD LAB BLOOD ORDERABLES Final Re sult Performing Organization Address [facility] Co de Phone Number [facility]IN[facility] [place] [employer] [place] [address] * Hemoglobin A1c (06/12/2024 12:47 PM COMMUNITY HEALTH NAVIGATOR) Hgb A1C 5.4 4.0 - 5.6 % Comment:Testing performed by : [address] [address] Estimated Average Glucose 108 mg/dL [facility] Comment: The ADA recommends reporting an estimated Average Glucose (eAG) with all Hemoglobin A1c results using the equation derived from a study of 507 normal and diabetic adults. ??Minority populations were underrepresented and children were not included. ?? (Diabetes Care 31:7128-0261, 2008). ??The eAG is not equivalent to a fasting glucose. Testing performed by: [address] [address] Blood 06/12/2024 12:4 7 PM COMMUNITY HEALTH NAVIGATOR 06/12/2024 12:53 PM COMMUNITY HEALTH NAVIGATOR us Kirill Taylor MD LAB BLOOD ORDERABLES Final Re sult [facility] [address] [facility] Department of Laboratories [place], [place] [id number] * (ABNORMAL) Lipid panel (06/12/2024 12:47 PM COMMUNITY HEALTH NAVIGATOR) Cholesterol 164 30 - 199 mg/dL Comment: [...] last revised on 2018. Testing performed by: [address] [address] Triglycerides 134 <=149 mg/dL [facility] Comment: Interpretive Data Ages < or = [...] last revised on 2018. Testing performed by: [address] [address] HDL 36(L) >=40 mg/dL [facility] Comment: Interpretive Data Ages < or = [...] last revised on 2018. Testing performed by: [address] [address] LDL, calculated 104 <=129 mg/dL [facility] Comment: Interpretive Data Ages < or = 19 years ??Acceptable: ? <110 mg/dL ??Borderline high: ??110-129 mg/dL ??High: ?>or= 130 mg/dL Ages > or = 20 years ??Optimal: ? <100 mg/dL ??Near optimal: ?100-129 mg/dL ??Borderline high: ?? 130-159 mg/dL ??High: ?>160 mg/dL Calculated using the Jasbir LDL-C estimating equation. This equation was implemented on 2024. Prior to this date LDL-C was estimated using the Friedewald equation. Literature References: 1. Expert Panel on Integrated Guidelines for Cardiovascular Health and Risk Reduction in Children and Adolescents. Pediatrics 2011;128:S213 2. NCEP Expert Panel. Circulation 2004;110:227 3. Jasbir Mtz et al. PAMELA Cardiol. 2020 October 07;5(5):540-548. doi: 10.1001/jamacardio.2020.0013 Current Interpretive Data was last revised on 2024. Testing performed by: [address] [address] Non-HDL Cholesterol 128 mg/dL [facility] Comment: Interpretive [...] last revised on 2018. Testing performed by: [address] [address] Chol/HDL ratio 5 [facility] Comment:Testing performed by : [address] [address] Blood 06/12/2024 12:4 7 PM COMMUNITY HEALTH NAVIGATOR 06/12/2024 12:54 PM COMMUNITY HEALTH NAVIGATOR us Kirill Taylor MD LAB BLOOD ORDERABLES Final Re sult [facility] [address] [facility] Department [place] [address] * Comprehensive metabolic panel (06/12/2024 12:47 PM COMMUNITY HEALTH NAVIGATOR) Sodium 142 135 - 145 mmol/L Comment:Testing performed by : [address] [address] Potassium, pl 4.5 3.3 - 4.9 mmol/L [facility] Comment:Testing performed by : [address] [address] Chloride 107 97 - 110 mmol/L [facility] Comment:Testing performed by : [address] [address] CO2 23 22 - 32 mmol/L [facility] Comment:Testing performed by : [address] [address] Anion gap 12 2 - 15 mmol/L [facility] Comment:Testing performed by : [address] [address] BUN 21 6 - 25 mg/dL [facility] Comment:Testing performed by : [address] [address] Creatinine 1.20 0.80 - 1.30 mg/dL [facility] Comment:Testing performed by : [address] [address] Glucose 82 70 - 199 mg/dL [facility] Comment: Interpretive Data Fasting glucose >/= 126 [...] was last revised 2022. Testing performed by: [facility], [address] [place] [address], [address] Calcium 9.4 8.5 - 10.3 mg/dL [facility] Comment:Testing performed by : [address] [address] Bilirubin, total 0.7 0.1 - 1.2 mg/dL [facility] Comment:Testing performed by : [address], [address] Protein, pl 7.3 6.5 - 8.5 g/dL [facility] Comment:Testing performed by : [address] [address] Albumin 4.6 3.5 - 5.0 g/dL [facility] Comment:Testing performed by : [address], [address] Alk phos 51 40 - 130 Units/L [facility] Comment:Testing performed by : [address] [address] ALT 38 7 - 55 Units/L [facility] Comment:Testing performed by : [address] [address] AST 31 10 - 50 Units/L [facility] Comment:Testing performed by : [address] [address] Blood 06/12/2024 12:4 7 PM COMMUNITY HEALTH NAVIGATOR 06/12/2024 12:54 PM COMMUNITY HEALTH NAVIGATOR us Kirill Taylor MD LAB BLOOD ORDERABLES Final Re sult [facility] [address] [facility] Department [place] [address] * (ABNORMAL) Total testosterone (03/31/2024 8:25 AM CDT) Testosterone 1,249(H) 193 - 740 ng/dL Blood 03/31/2024 8:25 AM CDT 03/31/2024 6:04 PM CDT us Kirill Taylor MD LAB BLOOD ORDERABLES Final Re sult [facility] [address] [facility] Department [place] [address] * COLONOSCOPY (07/21/2023 1:06 PM COMMUNITY HEALTH NAVIGATOR) Anatomical Region Laterality Modality Other Narrative Procedure Note Juaquin Wren MD - 07/21/2023 1:06 PM CST [facility] Patient Name: Vijaya Boyd Procedure [...] CRNA (Anesthesia Staff), Brigitte Mclean RN, Christine, Studio Potter Referring MD: Kirill Taylor M.D. Medicines: Monitored [...] bowel preparation was evaluated using the BBPS (Cooper Bowel Preparation Scale) with scores of: Right [...] polyp removal. Procedure Code(s): --- Professional --- 21630, Colonoscopy, flexible; with endoscopicmucosal resection 38531, 59, Colonoscopy, flexible; with removal of tumor(s), polyp(s), or other lesion(s) by snare technique 50295, 59, Colonoscopy, flexible; with biopsy,single or multiple Diagnosis Code(s): --- Professional --- Z80.0, Family history of malignant neoplasm of digestive organs D12.2, Benign neoplasm of ascending colon D12.5, Benign neoplasm of sigmoid colon K57.30, Diverticulosis of large intestine without perforation or abscess without bleeding CPT copyright 2020 [employer]. All rights reserved. The codes documented in this report are preliminary and upon small arms repairer reviewmay be revised to meet current compliance requirements. Electronically signed by Juaquin Wren MD Juaquin Wren M.D. 07/21/2023 1:35:57 PM Number of Addenda: 0 Note Initiated On: 07/21/2023 1:06 PM Juaquin Wren MD ENDOSCOPY PROCEDURES Final Resul t from Last 3 Months or Most Recently Relevant to [place] [address] [address] [place] [address] [employer] Care Teams Respiratory Therapy Director Relationship Specialty Start Date End Date Kirill Taylor MD PCP - General Family Medicine 04/18/21
== END 2024-06-29 05:12 | disposition home or self-care (01) ==
PROVIDERS: Emergency Provider Emergency Medicine; PCP Family Medicine
DX: R51.9 Headache, unspecified (principal); I10 Essential (primary) hypertension; Z20.822 Contact with and (suspected) exposure to COVID-19
CPT/HCPCS: 70450; 87637; 96374; 96375; 99284; J1200; J1885; J2765